=== PATIENT | male | born 1990 | race African-American/Black ===

== ENCOUNTER → 2023-07-07 | Emergency (ER) | payer OTHER ==
[~2023-07-07] VITALS: Ht 182.9 cm; Wt 104.5 kg
[~2023-07-07] MED LIST: OMEP10 PO
[2023-07-07 19:50] VITALS: BP 147/95; PULSE 97; RESP 16; TEMP 98.2
[2023-07-07] MEDS: ACETAMINOPHEN 500 MG TABLET PO ONE (20:31)
[2023-07-07] MEDS: PERTUSS(ACELL),DIPH,TET/PF 0.5 ML SYRINGE [ADULT] IM. ONE (22:33)
== END | disposition still patient (30) ==
LOC: EMS 19:50
DX: S01.01XA Laceration without foreign body of scalp, initial encounter (principal); S60.221A Contusion of right hand, initial encounter; F17.210 Nicotine dependence, cigarettes, uncomplicated; X58.XXXA Exposure to other specified factors, initial encounter; Y93.89 Activity, other specified; Y92.89 Other specified places as the place of occurrence of the external cause; Y99.8 Other external cause status
CPT/HCPCS: 70450; 90471; 90715; 99285